=== PATIENT | male | born 1970 | race Two or more races ===

== ENCOUNTER 2019-07-07 17:26 | Emergency (ER) | payer SELFPAY ==
[~2019-07-07] VITALS: Ht 167.6 cm; Wt 68.0 kg
[2019-07-07 17:35] VITALS: BP 128/76
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
== END 2019-07-07 19:00 | disposition left against medical advice (07) ==
LOC: ER 17:26
DX: S05.12XA Contusion of eyeball and orbital tissues, left eye, initial encounter (principal); F17.210 Nicotine dependence, cigarettes, uncomplicated; Y04.0XXA Assault by unarmed brawl or fight, initial encounter; Y93.89 Activity, other specified; Y92.89 Other specified places as the place of occurrence of the external cause; Y99.8 Other external cause status
CPT/HCPCS: 99282